=== PATIENT | female | born 2005 | race Caucasian/White ===

== ENCOUNTER 2024-08-28 20:27 | Emergency (ER) | payer OTHER, SELFPAY ==
--- NOTE | ~2024-08-28 | CT_ITS ---
CT facial bones wo con Ordering provider: Quique Rodrigues MD History: . nasal bone injury . Comparison: None. Technique: Thin slice axial CT of the facial bones was performed without contrast. Coronal and sagit irish reformatted images were also obtained. . The dose-length product was 292.97 mGy-cm. FINDINGS: PARANASAL SINUSES: Trace mucoperiosteal thickening within the bilateral maxillary sinuses. Remaining paranasal sinuses are unremarkable. BONES: No acute facial bone fracture. ORBITS AND SUPERFICIAL SOFT TISSUES: The optic globes and orbits are unremarkable. The superficial so ft tissues are intact. VISUALIZED MASTOIDS: Well aerated. LIMITED VISUALIZED BRAIN PARENCHYMA: No acute hemorrhage. IMPRESSION: No acute displaced facial bone fracture, as detailed above. Reviewed, dictated and finalized at location A.
--- NOTE | 2024-08-28 21:03 | PC.NURSE ---
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
--- OUTSIDE RECORDS SUMMARY | 2024-08-28 21:55 | XMS_ITS | Clinical Summary ---
Author Organization [facility] Address [facility] [place] [address] Care Team Providers Care Flooring Helper Name Role Phone Miranda Cherry DO Primary Care Provider [phone] Allergies Active Allergy Reactions Criticality Noted Date Comments Amoxicillin Rash Low 02/16/2019 Clindamycin Rash,Redness Low 06/03/2022 Medications albuterol sulfate HFA 108 (90 Base) MCG/ACT inhalerIndicatio ns:Exercise-marco antonio oren asthma ([facility]) Inhale 2 puffs into the lungs 2 (two) times daily as needed for Wheezing. 16 g 2 09/21/2021 Active spironolactone (ALDACTONE) 100 MG tablet 09/28/2021 Active tretinoin (RETIN-A) 0.025 % cream 07/19/2023 Active nortriptyline (PAMELOR) 10 MG capsuleIndicatio ns:Chronic cluster headache, not intractable Take 1 capsule (10 mg total) by mouth nightly at bedtime. at bedtime 90 capsule 3 01/26/2024 Active propranolol (INDERAL) 10 MG tabletIndication s:Chronic cluster headache, not intractable,MITCH (generalized anxiety disorder) Take 1 tablet (10 mg total) by mouth 2 (two) times daily as needed. 180 tablet 3 01/26/2024 Active Active Problems Problem Noted Date Diagnosed Date Dysmenorrhea 10/01/2020 Other acne 10/01/2020 Chronic cluster headache, not intractable 2019 Encounters Date Type Department Care Team Description 06/27/2024 5:10 PM HAND ENDBAND CUTTER - 06/27/2024 6:36 PM HAND ENDBAND CUTTER Hospital Encounter [facility] [address] [place] [address] Lilibeth Baum, BELL PERSON Flu Like Symptoms Discharge Disposition: Home or Self Care (Routine Discharge) 06/27/2024 Travel from Last 3 Months Immunizations Name Administration Dates Next Due DTaP-IPV/Hib (Pentacel) 2003,2003, Dtap (Generic) 07/27/2007,09/19/2004 Fluzone 6 Months+ Quad (0.5 mL Prefilled Syringe) 03/02/2020 H1N1 Intranasal 2009 Influenza 05/10/2009,2008 HPV GARDASIL 9-VALENT 06/10/2021,02/04/2021,06/2020 Hepatitis A (Generic) 12/02/2005,05/21/2005 Hepatitis B (Generic Peds) 2003,,2003,05/2002 Hib (Generic) 05/29/2004 Influenza (Generic) 03/15/2015,03/07/2014 Influenza Adult (Generic) 03/27/2022,04/24/2016 MENINGOCOCCAL A C Y&W-135 oligosaccharide (MENVEO) 11/28/2014 MMR (Generic) 07/27/2007,05/29/2004 Meningcoccal Group B (Trumen ba)(aka Meningitis) 11/28/2020 Meningococcal (Menactra) 11/28/2020 Pneumococcal (Prevnar 7) 05/29/2004,12/29,2003,03/31 Polio Ipv (Generic) 07/27/2007,09/19/2004 Tdap (Boostrix) 11/28/2014 Varicella (Generic) 07/27/2007,05/29/2004 Family History Medical History Relation Comments Hypertension Father Cancer Maternal Grandmother pancreatic ca Maternal Grandmother No Known Problems Mother Relation Status Comments Father Alive Maternal Grandmother Mother Alive Social History Tobacco Use Types Packs/Day Years Used Date Smoking Tobacco: Never Passive Smoke Exposure: Never Smokeless Tobacco: Never Tobacco Cessation:Counseling Given: Not Answered Alcohol Use Standard Drinks/Week Comments Yes 0 (1 standard drink = 0.6 oz pur e alcohol) socially AUDIT-C Answer Date Recorded Frequency of Alcohol Consumption Never 02/16/2019 Average Number of Drinks Not on file 019 Frequency of Binge Drinking Not on file 01/29 PHQ-2 Answer Date Recorded Patient Health Questionnaire-2 Score 0 02/07/2024 Comments No Sex and Gender Information Value Date Recorded Sex Assigned at Female 06/27/2024 4:43 PM HAND ENDBAND CUTTER Legal Sex Female 8:25 PM CDT Gender Identity Not on file Sexual Orientation Not on file Last Filed Vital Signs Vital Sign Reading Time Taken Comments Blood Pressure 125/84 06/27/2024 5:13 PM HAND ENDBAND CUTTER Pulse 94 06/27/2024 5:13 PM HAND ENDBAND CUTTER Temperature 36.7 C (98.1 F) 06/27/2024 5:13 PM HAND ENDBAND CUTTER Respiratory Rate 16 06/27/2024 5:13 PM HAND ENDBAND CUTTER Oxygen Saturation 100% 06/27/2024 5:13 PM HAND ENDBAND CUTTER Inhaled Oxygen Concentration - - Weight 59 kg (130 lb) 06/27/2024 5:13 PM HAND ENDBAND CUTTER Height 162.6 cm (5' 4 ) 06/27/2024 5:13 PM HAND ENDBAND CUTTER Body Mass Index 22.31 06/27/2024 5:13 PM HAND ENDBAND CUTTER Plan of Treatment Health Maintenance Due Date Last Done Comments Cervical Cancer Screening Pap Smear (Age 21 to 29) Every 3 Years 2003 Cervical Cancer Screening 2003 Hepatitis C 2021 Meningococcal B Vaccine (2 of 2 - Trumenba SCDM 2-dose series) 05/31/2021 11/28/2020 COVID-19 Vaccine (3 - season) 2024 09/15/2020, 08/19/2020 PHQ-2 (Physician [place]) 05/30/2024 02/07/2024 Annual Physical 11/27/2024 11/28/2023, 08/0 05/2021, 11/28/2020 DTaP, Tdap and Td Vaccines (7 - Td or Tdap) 11/28/2024 11/28/2014, 07/27/2007, 09/19/2004, Additional history exists Hepatitis B Vaccines Completed 2003, 2003, 2003, Additional history exists Pneumococcal Vaccine: Pediatrics (0 to 5 Years) and At-Risk Patients (6 to 64 Years) Aged Out 05/29/2004, 01/18/2004, 2003, Additional history exists No longer eligible based on patient's age to complete this topic Meningococcal Vaccine Completed 11/28/2020, 015 HPV Vaccines Completed 06/10/2021, 09/0 12/2020, 11/28/2020 Influenza Adult Completed 01/17/2024, 02/28, 03/02/2020, Additional history exists RSV Immunizations Under 20 Months Aged Out No longer eligible based on patient's age to complete this topic Procedures Procedure Name Priority Date/Time Associated Diagnosis Comments STREP A RAPID STAT 06/27/2024 5:16 PM HAND ENDBAND CUTTER from Last 3 Months Results * STREP A RAPID (06/27/2024 5:16 PM HAND ENDBAND CUTTER) SPECIMEN TYPE THROAT 06/27/2024 5:[address] [facility] RAPID STREP TEST NEGATIVE NEGATIVE 06/27/2024 5:[address] [facility] STRUCTURE OF ANTERIOR PORTION OF NECK / Unknown 06/27/2024 5:16 PM HAND ENDBAND CUTTER Lilibeth Baum BELL PERSON MICROBIOLOGY - GENERAL ORDE ANA LAURA Final Result Performing Organization Address City/State/[facility] Co de Phone Number [facility] [place] [address], [place] from Last 3 Months Insurance UMR UMR Care Teams Flooring Helper Relationship Specialty Start Date End Date Miranda Cherry DO [address] [place] [address] PCP - General FAMILY PRACTICE 05/12/20
[2024-08-28] MEDS: OXYMETAZOLINE HCL 0.05% NAS 15 ML BTL (*BKC) 1 SPRAY NASAL (22:47)
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
== END 2024-08-28 22:51 | disposition home or self-care (01) ==
PROVIDERS: Emergency Provider Student in an Organized Health Care Education/Training Program
DX: S01.21XA Laceration without foreign body of nose, initial encounter (principal); R04.0 Epistaxis; W51.XXXA Accidental striking against or bumped into by another person, initial encounter
CPT/HCPCS: 12011; 70486; 99284; A9270